=== PATIENT | male | born 1960 | race Caucasian/White ===

== ENCOUNTER 2018-06-25 10:25 | Emergency (ER) | payer MEDICAID ==
[2018-06-25] MEDS ORDERED: Sodium Chloride 0.9% 10 ML Syringe FLUSH PRN (10:32)
--- NOTE | 2018-06-25 10:50 | CR ---
[id number] RAD/RAD Chest PA And Lateral EXAM: FRONTAL AND LATERAL CHEST INDICATION: Chest pain. COMPARISON: November 04, 2014. DISCUSSION: Hyperinflation suggests underlying chronic obstructive pulmonary disease. Bilateral nipple shadows. No acute infiltrates are IMPRESSION: 1. No acute findings. César Mg MD 06/25/18 1049 Thank you for allowing us to participate in the care of your patient.
--- NOTE | 2018-06-25 10:56 | EDM.PDOC ---
ED HPI GENERAL MEDICAL PROBLEM - General Chief Complaint: Chest Pain Stated Complaint: rib pain Time Seen by Provider: 06/25/18 10:50 Source of Information: Reports: Patient History Limitations: Reports: No Limitations - History of Present Illness INITIAL COMMENTS - FREE TEXT/NARRATIVE: Patient's a 58-year-old gentleman who presents to the emergency department this morning with a complaint of left lower rib pain. Patient contacted the [facility], but was told to present to the ER. Patient states that symptoms began about a week ago and have isolated to left lower anterior rib cage. Patient states that he does a repetitive type motion at work that involves using both hands pulling across his body. Patient also states that he had left lower extremity vein stripping March 2018. There is been no issues of edema or pain of extremity since. While trying to obtain IV access and lab work, there was difficulty in obtaining access and patient only allowed nurse one attempt. This attempt was unsuccessful. Patient states that he was previously an IV drug user and refused to have second attempt for lab work. Currently, patient denies fever, chest pain, shortness of breath, abdominal pain, nausea, vomiting , diarrhea, coughing of blood, or specific trauma. Onset: Gradual Duration: Week(s): Location: Reports: Chest Quality: Reports: Ache Severity: Mild Improves with: Reports: None Worsens with: Reports: Movement Context: Reports: Activity (Repetitive type motion at work) Associated Symptoms: Reports: No Other Symptoms left lower rib Pain Score (Numeric/FACES): 2 - Related Data Allergies Allergy/AdvReac Type Severity Reaction Status Date / Time vancomycin Allergy Itching Verified 06/25/18 10:48 Home Meds: Home Meds Buprenorphine [Subutex] 1 mg PO DAILY 10/12/14 [History] Ibuprofen 800 mg PO TID PRN 06/25/18 [History] Tamsulosin HCl 0.4 mg PO DAILY 06/25/18 [History] Past Medical History - Past Health History Medical/Surgical History: Denies Medical/Surgical History Other Psychiatric History: on a pain med program - Past Surgical History Other Musculoskeletal Surgeries/Procedures:: right knee fracture fixation Social & Family History - Living Situation & Occupation Living situation: Reports: with Spouse ED ROS GENERAL - Review of Systems Review Of Systems: ROS reveals no pertinent complaints other than HPI. Constitutional: Reports: No Symptoms HEENT: Reports: No Symptoms Respiratory: Reports: No Symptoms. Denies: Shortness of Breath Cardiovascular: Reports: No Symptoms. Denies: Chest Pain Endocrine: Reports: No Symptoms GI/Abdominal: Reports: No Symptoms : Reports: No Symptoms Musculoskeletal: Reports: Other (Left rib pain) Skin: Reports: No Symptoms Neurological: Reports: No Symptoms Psychiatric: Reports: No Symptoms Hematologic/Lymphatic: Reports: No Symptoms Immunologic: Reports: No Symptoms ED EXAM, GENERAL - Physical Exam Exam: See Below Exam Limited By: No Limitations General Appearance: Alert, WD/WN, No Apparent Distress Throat/Mouth: Normal Inspection, Normal Oropharynx, No Airway Compromise Head: Atraumatic, Normocephalic Neck: Normal Inspection, Supple, Non-Tender Respiratory/Chest: No Respiratory Distress, Lungs Clear, Normal Breath Sounds, No Accessory Muscle Use, Other Cardiovascular: Normal Peripheral Pulses, Regular Rate, Rhythm, No Murmur, No Rub GI/Abdominal: Normal Bowel Sounds, Soft, Non-Tender, No Organomegaly, No Distention, No Abnormal Bruit, No Mass Back Exam: Normal Inspection. No: CVA Tenderness (L), CVA Tenderness (R) Extremities: Normal Inspection, No Pedal Edema, Other (Left lower extremity without any erythema, edema, or calf tenderness on palpation.) Neurological: Alert, Oriented, Normal Cognition Psychiatric: Normal Affect, Normal Mood Skin Exam: Warm, Dry, Intact, Normal Color, No Rash Lymphatic: No Adenopathy EKG INTERPRETATION EKG Date: 06/25/18 Time: 10:40 Rhythm: NSR Rate (Beats/Min): 68 [place]: Normal P-Wave: Present QRS: Normal ST-T: Normal QT: Normal Comparison: No Change Course - Vital Signs Last Recorded V/S: Last Vital Signs Temp 97.2 F 06/25/18 10:35 Pulse 71 06/25/18 10:35 Resp 16 06/25/18 10:35 BP 127/70 06/25/18 10:35 Pulse Ox 98 06/25/18 10:35 - Orders/Labs/Meds Orders: Active Orders 24 hr Category Date Time Status EKG Documentation Completion [RC] ASDIRECTED Care 06/25/18 10:31 Active Peripheral IV Care [RC] . DIRECTED Care 06/25/18 10:32 Active CBC WITH AUTO DIFF [HEME] Stat Lab 06/25/18 10:32 Ordered COMPREHENSIVE METABOLIC PN,CMP [CHEM] Stat Lab 06/25/18 10:32 Ordered D-DIMER QUANTITATIVE [COAG] Stat Lab 06/25/18 10:32 Ordered TROPONIN I [CHEM] Stat Lab 06/25/18 10:32 Ordered Sodium Chloride 0.9% [Saline Flush] Med 06/25/18 10:32 Active 10 ml FLUSH Q8HR PRN Peripheral IV Insertion Adult [OM.PC] Routine Oth 06/25/18 10:32 Ordered EKG 12 Lead [EK] Routine Ther 06/25/18 10:31 Ordered Medication Orders Sodium Chloride (Saline Flush) 10 ml FLUSH Q8HR PRN PRN Reason: keep vein open Meds: Medications Generic Name Dose Route Start Last Admin Trade Name Freq PRN Reason Stop Dose Admin Sodium Chloride 10 ml 06/25/18 10:32 Saline Flush FLUSH Q8HR PRN keep vein open - Radiology Interpretation Free Text/Narrative:: Chest x-ray shows no acute cardiopulmonary process - Re-Assessments/Exams Free Text/Narrative Re-Assessment/Exam: 06/25/18 11:05 Patient afebrile, appears nontoxic, vital signs stable, EKG normal sinus rhythm , chest x-ray shows no acute cardiopulmonary process. Lab work was not performed per patient request. There was isolated specific point tenderness of left lower rib consistent with costochondritis and repetitive type motion. Patient will follow-up at clinic Departure - Departure Time of Disposition: 11:07 Disposition: Home, Self-Care 01 Condition: Good Clinical Impression: Costochondritis - Discharge Information Instructions: Costochondritis, [id number], Chest Wall Pain, [id number] Referrals: Daly Haynes MD [Primary Care Provider] - Additional Instructions: Follow-up with Dr. Douglas in next 2-3 days. Return to emergency department sooner if symptoms continue or worsen. - My Orders Last 24 Hours: My Active Orders 06/25/18 10:31 EKG Documentation Completion [RC] ASDIRECTED EKG 12 Lead [EK] Routine 06/25/18 10:32 Peripheral IV Care [RC] . DIRECTED CBC WITH AUTO DIFF [HEME] Stat COMPREHENSIVE METABOLIC PN,CMP [CHEM] Stat D-DIMER QUANTITATIVE [COAG] Stat TROPONIN I [CHEM] Stat Sodium Chloride 0.9% [Saline Flush] 10 ml FLUSH Q8HR PRN Peripheral IV Insertion Adult [OM.PC] Routine - Assessment/Plan Last 24 Hours: My Active Orders 06/25/18 10:31 EKG Documentation Completion [RC] ASDIRECTED EKG 12 Lead [EK] Routine 06/25/18 10:32 Peripheral IV Care [RC] . DIRECTED CBC WITH AUTO DIFF [HEME] Stat COMPREHENSIVE METABOLIC PN,CMP [CHEM] Stat D-DIMER QUANTITATIVE [COAG] Stat TROPONIN I [CHEM] Stat Sodium Chloride 0.9% [Saline Flush] 10 ml FLUSH Q8HR PRN Peripheral IV Insertion Adult [OM.PC] Routine Assessment:: Costochondritis Plan: Follow-up at clinic
[2018-06-25 10:59] VITALS: BP 117/65
== END 2018-06-25 11:10 | disposition home or self-care (01) ==
LOC: KA.ED 10:25
DX: M94.0 Chondrocostal junction syndrome [Tietze] (principal); Z79.899 Other long term (current) drug therapy; Z88.1 Allergy status to other antibiotic agents
CPT/HCPCS: 71046; 93005; 99283-25

== ENCOUNTER 2018-11-01 13:25 | Emergency (ER) | payer OTHER ==
[2018-11-01 13:36] VITALS: BP 132/81; PULSE 84
--- NOTE | 2018-11-01 14:43 | CR ---
[id number] RAD/RAD Sacrum and Coccyx Exam: RAD Sacrum and Coccyx Clinical Data: BACK PAIN COMPARISON: NO PREVIOUS SIMILAR EXAM IS AVAILABLE FINDINGS: Mild to moderate degenerative changes at multiple levels are seen. There is no fracture or subluxation. Abundant fecal matter is seen in the colon. IMPRESSION: MILD TO MODERATE DEGENERATIVE CHANGES. Torsten Amado MD 11/01/18 [id number] Thank you for allowing us to participate in the care of your patient.
--- NOTE | 2018-11-01 14:44 | CR ---
[id number] RAD/RAD Lumbar Spine 2-3V EXAM: AP AND LATERAL LUMBAR SPINE. INDICATION: Back pain COMPARISON: No previous similar exam is available for comparison. FINDINGS: There are degenerative changes. There is no fracture or subluxation. Consider MRI if needed. IMPRESSION: NO ACUTE PLAIN FILM ABNORMALITY. Torsten Amado MD 11/01/18 1419 Thank you for allowing us to participate in the care of your patient.
[2018-11-01] MEDS ORDERED: Ketorolac 60 MG/2 ML SDV IM ONE (14:46)
--- NOTE | 2018-11-01 15:14 | EDM.PDOC ---
ED HPI GENERAL MEDICAL PROBLEM - General Chief Complaint: Back Pain or Injury Stated Complaint: severe low back pain Time Seen by Provider: 11/01/18 14:00 Source of Information: Reports: Patient History Limitations: Reports: No Limitations - History of Present Illness INITIAL COMMENTS - FREE TEXT/NARRATIVE: 58-year-old male presents emergency room with complaints of severe low back pain. He was seen by Dr. Daly Douglas on October 30 for complaints of low back pain. His onset began on October 23. 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 He notices that if he sits or lies down his back pain is worse. He feels it gets some relief of his discomfort with standing or walking. Bending and twisting is also quite bothersome for him. He denies any bowel or bladder retention or incontinence. He 's been taking 800 mg of ibuprofen up to 4 times a day he was started on Flexeril 10 mg 3 times a day. He was given trigger point injections in his low back. He's had no relief of the pain and symptoms. He denies any history of low back pain in the remote past. 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 He is followed by his psychiatrist Dr. Patino in [place]. He is on bupropion. He denies significant pain radiating her shooting down his legs. Pain tends to be across his belt line. He denies significant constipation in the past and states that he has had a bowel movement daily. 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) Lower Back Pain Score (Numeric/FACES): 8 - Related Data Allergies Allergy/AdvReac Type Severity Reaction Status Date / Time vancomycin Allergy Itching Verified 11/01/18 13:32 Home Meds: Home Meds Ibuprofen 800 mg PO TID PRN 06/25/18 [History] Tamsulosin HCl 0.4 mg PO DAILY 06/25/18 [History] Buprenorphine HCl 2 mg PO BID 11/01/18 [History] Cyclobenzaprine [Flexeril] 10 mg PO TID PRN 11/01/18 [History] LORazepam 0.5 - 1 mg PO BID PRN 11/01/18 [History] Mirtazapine 15 mg PO BEDTIME 11/01/18 [History] Tadalafil [Cialis] 40 - 60 mg PO DAILY PRN 11/01/18 [History] Past Medical History - Past Health History Medical/Surgical History: Denies Medical/Surgical History HEENT History: Reports: Impaired Vision Genitourinary History: Reports: BPH Musculoskeletal History: Reports: Fracture, Other (See Below) Other Musculoskeletal History: Back injury on 10/23/18 Psychiatric History: Reports: Other (See Below) Other Psychiatric History: on a pain med program - Past Surgical History Head Surgeries/Procedures: Reports: None Cardiovascular Surgical History: Reports: Varicose, Other (See Below) Other Cardiovascular Surgeries/Procedures: varicose veins stripped left leg March 2018 Musculoskeletal Surgical History: Reports: Other (See Below) Other Musculoskeletal Surgeries/Procedures:: right knee fracture fixation Social & Family History - Family History Family Medical History: Noncontributory - Caffeine Use Caffeine Use: Reports: Coffee, Soda - Living Situation & Occupation Living situation: Reports: with Spouse ED ROS GENERAL - Review of Systems Review Of Systems: See Below Constitutional: Reports: Weight Loss. Denies: Fever, Chills HEENT: Reports: No Symptoms Respiratory: Reports: No Symptoms Cardiovascular: Reports: No Symptoms Endocrine: Reports: No Symptoms GI/Abdominal: Denies: Abdominal Pain, Constipation, Nausea, Stool Incontinence, Vomiting : Denies: Incontinence, Urinary Retention Musculoskeletal: Reports: Back Pain Skin: Reports: No Symptoms Neurological: Denies: Numbness, Paresthesia, Pre-Existing Deficit, Weakness Psychiatric: Reports: Other (History of narcotic dependence) Hematologic/Lymphatic: Reports: No Symptoms Immunologic: Reports: No Symptoms ED EXAM,LOWER BACK PAIN/INJURY - Physical Exam Exam: See Below Exam Limited By: No Limitations General Appearance: Alert, No Apparent Distress, Thin Ears: Hearing Grossly Normal Nose: Normal Inspection Throat/Mouth: Normal Voice, No Airway Compromise Head: Atraumatic, Normocephalic Neck: Normal Inspection, Supple Respiratory/Chest: No Respiratory Distress GI/Abdominal: Soft, Non-Tender Back Exam: Normal Inspection, Decreased Range of Motion, Paraspinal Tenderness. No: CVA Tenderness (L), CVA Tenderness (R), Vertebral Tenderness Extremities: Normal Inspection, Normal Range of Motion, Non-Tender, No Pedal Edema Neurological: Alert, Normal Dorsiflexion, Normal Plantar Flexion, Normal Reflexes, No Motor/Sensory Deficits, Oriented x 3, Straight Leg Raise (L), Straight Leg Raise (R), Difficulty Walking, Other (Motor strength bilateral lower extremities are 5 out of 5 throughout. Patient has a positive straight leg raise on the left and right which reproduces severe low back pain at the belt line. Deep tendon reflexes are 3+ and symmetric at the knees and ankles she has no pain with gentle hip or knee range of motion he has a well-healed incision of the right knee consistent with prior surgery and per patient's report severe trauma from an open fracture. No swelling about his knees or ankles.). No: Babinski, Saddle Anesthesia DTR - Lower Extremities: 2+: Ankle (R), Ankle (L), 3+: Knee (R), Knee (L) Psychiatric: Depressed Mood Skin Exam: Warm, Dry, Intact, Normal Color, No Rash Lymphatic: No Adenopathy Course - Vital Signs Last Recorded V/S: Last Vital Signs Temp 97.8 F 11/01/18 13:33 Pulse 84 11/01/18 13:33 Resp 16 11/01/18 13:33 BP 132/81 11/01/18 13:33 Pulse Ox 97 11/01/18 13:33 - Orders/Labs/Meds Meds: Medications Discontinued Medications Generic Name Dose Route Start Last Admin Trade Name Freq PRN Reason Stop Dose Admin Ketorolac Tromethamine 60 mg 11/01/18 14:46 11/01/18 14:53 Toradol IM 11/01/18 14:47 60 mg ONETIME ONE Administration Orphenadrine Citrate 60 mg 11/01/18 14:47 11/01/18 14:51 Norflex IM 11/01/18 14:48 60 mg Q12H ONE Administration - Radiology Interpretation Free Text/Narrative:: X-ray lumbar spine including sacrum and coccyx Findings: Mild degenerative changes are seen. No evidence of fracture or subluxation. Patient has a large amount of stool in the colon Impression: Mild to moderate degenerative changes lumbar spine Departure - Departure Time of Disposition: 15:20 Disposition: Home, Self-Care 01 Condition: Good Clinical Impression: Acute low back pain with radicular symptoms, duration less than 6 weeks - Discharge Information Instructions: Acute Back Pain, Adult Referrals: Daly Haynes MD [Primary Care Provider] - 11/04/18 2:00 pm (Dr. Douglas F/U at 2 PM. MRI at [facility] at 10:30.) Forms: ED Department Discharge - Assessment/Plan Assessment:: Acute low back pain with sciatica Plan: 1. You may use ice and or heat to your lower back as needed. 2. Continue with ibuprofen 800 mg 3 times a day with food. 3. Flexeril 10 mg 3 times a day as needed for muscle pain and spasm. 4. Begin MiraLAX twice a day to 3 times a day for constipation. 5. You have an MRI scheduled at [facility] in [facility] on Sunday at 10:30 AM. 6. Follow-up with Dr. Daly Douglas Sunday afternoon to go over results of MRI. 7. If MRI is negative for disc herniation or nerve root compression, would recommend starting physical therapy and/or chiropractic treatments. 8. Avoid activities that aggravate your low back pain. Keep the lifting to 10 pounds or under.
== END 2018-11-01 15:20 | disposition home or self-care (01) ==
LOC: KA.ED 13:25
DX: M54.40 Lumbago with sciatica, unspecified side (principal); Z88.1 Allergy status to other antibiotic agents; Z79.899 Other long term (current) drug therapy
CPT/HCPCS: 72100; 72220; 96372; 99283; J1885; J2360

== ENCOUNTER 2020-01-31 19:07 | Emergency (ER) | payer OTHER, SELFPAY ==
[2020-01-31 19:24] VITALS: BP 152/89; PULSE 84
--- NOTE | 2020-01-31 19:28 | EDM.PDOCBH ---
ED HPI GENERAL MEDICAL PROBLEM - General Chief Complaint: Behavioral/Psych Stated Complaint: SUICIDAL IDEALATION Time Seen by Provider: 01/31/20 19:15 Source of Information: Reports: Patient, Police History Limitations: Reports: No Limitations - History of Present Illness INITIAL COMMENTS - FREE TEXT/NARRATIVE: 59 YO WM PRESENTS TO ER BY LAW ENFORCEMENT SECONDARY TO SUICIDAL IDEALIZATION. PT REPORTS HE AND HIS RECENTLY AND HE HAS BEEN FEELING DEPRESSED FOR SOMETIME. PT REPORTS LAST NIGHT HE WAS THINKING ABOUT DRINKING ANTIFREEZE BUT DECIDED AGAINST IT WHEN HIS CALLED HIM. PT REPORTS HE WOULD LIKE INPATIENT TREATMENT FOR HIS DEPRESSION. PT DENIES AUDITORY OR VISUAL HALLUCINATIONS, PT DENIES HOMICIDAL IDEATION. PT IS ALERT AND ORIENTED X 4. PT REPORTS HE HAS HAD INPATIENT PSYCH TREATMENT IN THE REMOTE PAST. PT DENIES ALCOHOL/DRUGS OR ANY ATTEMPTED INGESTION. Onset: Unknown/Unsure Duration: Chronic Location: Reports: Generalized Improves with: Reports: None Worsens with: Reports: None Associated Symptoms: Reports: No Other Symptoms - Related Data Allergies Allergy/AdvReac Type Severity Reaction Status Date / Time vancomycin Allergy Itching Verified 01/31/20 19:17 Home Meds: Home Meds Ibuprofen 800 mg PO TID PRN 06/25/18 [History] Buprenorphine HCl 1 mg PO QID 11/01/18 [History] LORazepam 0.5 - 1 mg PO BID PRN 11/01/18 [History] Tadalafil [Cialis] 40 - 60 mg PO DAILY PRN 11/01/18 [History] Past Medical History - Past Health History Medical/Surgical History: Denies Medical/Surgical History HEENT History: Reports: Impaired Vision Genitourinary History: Reports: BPH Musculoskeletal History: Reports: Fracture, Other (See Below) Other Musculoskeletal History: Back injury on 10/23/18 Psychiatric History: Reports: Other (See Below) Other Psychiatric History: on a pain med program - Past Surgical History Head Surgeries/Procedures: Reports: None Cardiovascular Surgical History: Reports: Varicose, Other (See Below) Other Cardiovascular Surgeries/Procedures: varicose veins stripped left leg March 2018 Musculoskeletal Surgical History: Reports: Other (See Below) Other Musculoskeletal Surgeries/Procedures:: right knee fracture fixation Social & Family History - Family History Family Medical History: Noncontributory - Caffeine Use Caffeine Use: Reports: Coffee, Soda - Living Situation & Occupation Living situation: Reports: with Spouse ED ROS GENERAL - Review of Systems Review Of Systems: See Below Constitutional: Reports: Weight Loss HEENT: Reports: No Symptoms Respiratory: Reports: No Symptoms Cardiovascular: Reports: No Symptoms Endocrine: Reports: No Symptoms GI/Abdominal: Reports: No Symptoms : Reports: No Symptoms Musculoskeletal: Reports: No Symptoms Skin: Reports: No Symptoms Neurological: Reports: No Symptoms Psychiatric: Reports: Anxiety, Depression, Suicidal Ideation. Denies: Agitation, Confusion, Cravings, Hallucinations, Homicidal Ideation, Mood Lability Hematologic/Lymphatic: Reports: No Symptoms Immunologic: Reports: No Symptoms ED EXAM, BEHAVIORAL HEALTH - Physical Exam Exam: See Below Exam Limited By: No Limitations General Appearance: Alert, WD/WN, No Apparent Distress Eye Exam: Bilateral Eye: EOMI, PERRL Throat/Mouth: Normal Inspection, Normal Lips, Normal Teeth, Normal Gums, Normal Oropharynx, Normal Voice, No Airway Compromise Head: Atraumatic, Normocephalic Neck: Normal Inspection, Supple, Non-Tender, Full Range of Motion Respiratory/Chest: No Respiratory Distress, Lungs Clear, Normal Breath Sounds, No Accessory Muscle Use, Chest Non-Tender Cardiovascular: Normal Peripheral Pulses, Regular Rate, Rhythm, No Edema, No Gallop, No JVD, No Murmur, No Rub GI/Abdominal: Normal Bowel Sounds, Soft, Non-Tender, No Organomegaly, No Distention, No Abnormal Bruit, No Mass Back Exam: Normal Inspection, Full Range of Motion, NT Extremities: Normal Inspection, Normal Range of Motion, Non-Tender, Normal Capillary Refill, No Pedal Edema Neurological: Alert, Normal Mood/Affect, CN II-XII Intact, Normal Cognition, Normal Gait, Normal Reflexes, No Motor/Sensory Deficits, Oriented x 3 Psychiatric: Alert, Normal Cognition, Oriented, Depressed Mood, Flat Affect, Suicidal Plan, Suicidal Thoughts. No: Tearful, Agitated, Disoriented, Uncooperative, Homicidal Thoughts, Phobic, Tangential Thoughts, Auditory Hallucinations, Visual Hallucinations, Grandiose Thoughts, Pressured Speech, Paranoid Thoughts, Threatening Behavior Skin Exam: Warm, Dry, Intact, Normal color, No rash COURSE, BEHAVIORAL HEALTH COMP - Course Vital Signs: Last Vital Signs Temp 35.7 C L 01/31/20 19:22 Pulse 84 01/31/20 19:22 Resp 20 01/31/20 19:22 BP 152/89 H 01/31/20 19:22 Pulse Ox 98 01/31/20 19:22 Orders, Labs, Meds: Laboratory Tests 01/31/20 01/31/20 01/31/20 Range/Units 19:16 19:40 19:40 WBC 9.51 (5.00-10.00) 10^3/uL RBC 4.99 (4.50-6.00) 10^6/uL Hgb 15.8 (13.0-17.0) g/dL Hct 47.5 (40.0-52.0) % MCV 95.2 H (82.0-92.0) fL MCH 31.7 H (27.0-31.0) pg MCHC 33.3 (32.0-36.0) g/dL RDW 12.5 (11.5-14.5) % Plt Count 207 (150-400) 10^3/uL MPV 8.4 (7.4-10.4) fL Immature Gran % (Auto) 0.2 (0.0-5.0) % Neut % (Auto) 70.4 H (50.0-70.0) % Lymph % (Auto) 20.9 (20.0-40.0) % [place] % (Auto) 7.7 (2.0-8.0) % Eos % (Auto) 0.5 L (1.0-3.0) % Baso % (Auto) 0.3 (0.0-1.0) % Neut # (Auto) 6.69 (2.50-7.00) 10^3/uL Lymph # (Auto) 1.99 (1.00-4.00) 10^3/uL [place] # (Auto) 0.73 (0.10-0.80) 10^3/uL Eos # (Auto) 0.05 L (0.10-0.30) 10^3/uL Baso # (Auto) 0.03 (0.00-0.10) 10^3/uL Immature Gran # (Auto) 0.02 (0.00-0.50) 10^3/uL Sodium 140 (136-145) mmol/L Potassium 3.9 (3.3-5.3) mmol/L Chloride 103 (98-115) mmol/L Carbon Dioxide 28.1 (21.0-32.0) mmol/L Anion Gap 12.8 (5-15) mmol/L BUN 12 (6-25) mg/dL Creatinine 0.82 (0.51-1.17) mg/dL Est Cr Clr Drug Dosing 77.17 mL/min Estimated GFR (MDRD) > 60 mL/min Glucose 104 H (75 - 99) mg/dL Calcium 9.1 (8.7-10.3) mg/dL Total Bilirubin 0.8 (0.2-1.0) mg/dL AST 21 (15-37) U/L ALT 33 (12-78) U/L Alkaline Phosphatase 78 (46-116) IU/L Total Protein 7.4 (6.4-8.2) g/dL Albumin 4.32 (3.00-4.80) g/dL Urine Opiates Screen Negative (NEGATIVE) Ur Oxycodone Screen Negative (NEGATIVE) Urine Methadone Screen Negative (NEGATIVE) Ur Propoxyphene Screen Negative (NEGATIVE) Acetaminophen 0.0 L (10.0-30.0) ug/mL Ur Barbiturates Screen Negative (NEGATIVE) Ur Tricyclics Screen Negative (NEGATIVE) Ur Phencyclidine Scrn Negative (NEGATIVE) Ur Amphetamine Screen Negative (NEGATIVE) U Methamphetamines Scrn Negative (NEGATIVE) U Benzodiazepines Scrn Positive H (NEGATIVE) U Cocaine Metab Screen Negative (NEGATIVE) U Marijuana (THC) Screen Negative (NEGATIVE) Ethyl Alcohol 5 H (NONE DETECTED) mg/dL Medical Clearance: 01/31/20 20:42 PT MEDICALLY CLEAR FOR PSYCH EVALUATION. PT ALERT AND ORIENTED X 4; VITAL SIGNS STABLE; NAD Discharge vs Psych Eval/Treatment:: 01/31/20 20:[address] [facility] FOR PLACEMENT- NO PSYCH BEDS AVAILABLE CALLED [facility]- BEDS AVAILABLE-AWAITING PSYCH ACCEPTING Departure - Departure Time of Disposition: 21:41 Disposition: DC/Tfer to Psych Hosp/Unit 65 Clinical Impression: Depressive disorder, Suicidal ideation - Discharge Information Referrals: Daly Haynes MD [Primary Care Provider] - Forms: ED Department Discharge, Interfacility Transfer EMTALA Sepsis Event Note (ED) - Focused Exam Vital Signs: Vital Signs Temp Pulse Resp BP Pulse Ox 01/31/20 19:22 35.7 C L 84 20 152/89 H 98 - Assessment/Plan Assessment:: 1. SUICIDAL IDEATION WITH PLAN Plan: 1. TRANSFER TO [facility] [address]- 2. SUPPORTIVE CARE 3. TRANSFER BY AMBULANCE- PT IS CURRENTLY VOLUNTARY FOR PSYCH TRANSFER
[2020-01-31 20:11] LABS: BARBITURATE SCREEN,URINE NEGATIVE (NEGATIVE); BENZODIAZEPINES SCREEN,URINE POSITIVE (NEGATIVE)
[2020-01-31 20:12] LABS: TCA SCREEN,URINE NEGATIVE (NEGATIVE); THC SCREEN,URINE 50 NG/ML NEGATIVE (NEGATIVE)
[2020-01-31 20:21] LABS: ANION GAP 12.8 mmol/L (5-15); CHLORIDE,CL 103 mmol/L (98-115); SODIUM,NA 140 mmol/L (136-145)
== END 2020-01-31 22:20 ==
LOC: KA.ED 19:07
DX: F32.9 Major depressive disorder, single episode, unspecified (principal); Z88.1 Allergy status to other antibiotic agents
CPT/HCPCS: 36415; 80053; 80305-QW; 80307; 85025; 99284; 99285

== ENCOUNTER 2020-02-26 14:13 | Emergency (ER) | payer OTHER ==
--- NOTE | 2020-02-26 15:08 | EDM.PDOC ---
ED HPI GENERAL MEDICAL PROBLEM - General Chief Complaint: Abdominal Pain Stated Complaint: RIGHT SIDE PX-APPENDICITIS? Time Seen by Provider: 02/26/20 15:08 Source of Information: Reports: Patient History Limitations: Reports: No Limitations - History of Present Illness INITIAL COMMENTS - FREE TEXT/NARRATIVE: Worsening abdominal discomfort, now to his right mid/right lower quadrant of the abdomen. Denies any fever chills, states bowel movements have been regular. Has had no recent bladder issues stating he had a previous kidney stone that was worked up with CT. States that something must be wrong for the type of pain I am having. Onset: Gradual Duration: Getting Worse Location: Reports: Abdomen Quality: Reports: Burning, Pressure Severity: Moderate Improves with: Reports: None Worsens with: Reports: Movement Right Lower Abdominal Pain Score (Numeric/FACES): 8 - Related Data Allergies Allergy/AdvReac Type Severity Reaction Status Date / Time vancomycin Allergy Itching Verified 02/26/20 14:29 Home Meds: Home Meds Ibuprofen 800 mg PO TID PRN 06/25/18 [History] Buprenorphine HCl 1 mg PO QID 11/01/18 [History] LORazepam 0.5 mg PO BEDTIME PRN 11/01/18 [History] Tadalafil [Cialis] 40 - 60 mg PO DAILY PRN 11/01/18 [History] Dutasteride 0.5 mg PO DAILY 02/26/20 [History] Tamsulosin HCl 0.4 mg PO DAILY 02/26/20 [History] Past Medical History - Past Health History Medical/Surgical History: Denies Medical/Surgical History HEENT History: Reports: Impaired Vision Genitourinary History: Reports: BPH, Renal Calculus Musculoskeletal History: Reports: Fracture, Other (See Below) Other Musculoskeletal History: Back injury on 10/23/18 Psychiatric History: Reports: Anxiety, Depression, Other (See Below) Other Psychiatric History: on a pain med program - Infectious Disease History Infectious Disease History: Reports: Hepatitis C - Past Surgical History Head Surgeries/Procedures: Reports: None Cardiovascular Surgical History: Reports: Varicose, Other (See Below) Other Cardiovascular Surgeries/Procedures: varicose veins stripped left leg March 2018 Musculoskeletal Surgical History: Reports: Other (See Below) Other Musculoskeletal Surgeries/Procedures:: right knee fracture fixation - Past Imaging History Past Imaging History: Reports: CAT Scan, Xray Social & Family History - Family History Family Medical History: Noncontributory - Tobacco Use Tobacco Use Status *Q: Current Every Day Tobacco User Years of Tobacco use: 20 Packs/Tins Daily: 1 - Caffeine Use Caffeine Use: Reports: Coffee Other Caffeine Use: 3-4 cups/ day - Recreational Drug Use Recreational Drug Use: No - Living Situation & Occupation Living situation: Reports: with Spouse ED ROS GENERAL - Review of Systems Review Of Systems: Comprehensive ROS is negative, except as noted in HPI. ED EXAM, GENERAL - Physical Exam Exam: See Below Free Text/Narrative:: Yazan, is alert, oriented in mild distress. He points to the right lower quadrant as I listen to his history of this development. HEENT is negative discharge or deformity, there is odor of smoking product with pink moist mucous membranes orally. Neck is soft supple no lymphadenopathy. Thorax is raspy, I attribute to smoking with no wheezes nor crackles. Cardiac is S1 is 2 I do not appreciate any murmur. Abdomen has hyperactive bowel sounds with mild tenderness in the right lower quadrant, no rebound tenderness. His pain does not seem to radiate when I c ompress. After the examination, he moves and said "There it is," pointing to the abdominal wall 4 cm medial of the iliac crest. Tenderness is noted when I palpate. The pain does not seemingly correlate with his point tenderness on self-exam to my examination. Remainder of abdomen is soft and non-guarding nontender. He has no psoas sign, no motion induced pain from lower extremity or raising to a seated position from supine. I do discuss with him the process evaluation laboratory analysis, urinalysis if he is able to provide, and a CAT scan with contrast to which he agrees. Course - Vital Signs Last Recorded V/S: Last Vital Signs Temp 37.1 C 02/26/20 14:30 Pulse 65 02/26/20 14:30 Resp 16 02/26/20 14:30 BP 122/84 02/26/20 14:30 Pulse Ox 97 02/26/20 14:30 - Orders/Labs/Meds Orders: Active Orders 24 hr Category Date Time Status Sodium Chloride 0.9% [Normal Saline] 50 ml Med 02/26/20 16:15 Active IV ASDIRECTED Medication Orders Sodium Chloride (Normal Saline) 50 mls @ 200 mls/hr IV ASDIRECTED JP Last Admin: 02/26/20 16:00 Dose: 200 mls/hr Documented by: [id number] Labs: Laboratory Tests 02/26/20 02/26/20 02/26/20 Range/Units 15:30 15:30 15:30 WBC 6.66 (5.00-10.00) 10^3/uL RBC 4.39 L (4.50-6.00) 10^6/uL Hgb 14.0 D (13.0-17.0) g/dL Hct 43.2 (40.0-52.0) % MCV 98.4 H D (82.0-92.0) fL MCH 31.9 H (27.0-31.0) pg MCHC 32.4 (32.0-36.0) g/dL RDW 13.0 (11.5-14.5) % Plt Count 152 (150-400) 10^3/uL MPV 8.2 (7.4-10.4) fL Immature Gran % (Auto) 0.2 (0.0-5.0) % Neut % (Auto) 58.5 (50.0-70.0) % Lymph % (Auto) 29.4 (20.0-40.0) % [place] % (Auto) 10.1 H (2.0-8.0) % Eos % (Auto) 1.5 (1.0-3.0) % Baso % (Auto) 0.3 (0.0-1.0) % Neut # (Auto) 3.90 (2.50-7.00) 10^3/uL Lymph # (Auto) 1.96 (1.00-4.00) 10^3/uL [place] # (Auto) 0.67 (0.10-0.80) 10^3/uL Eos # (Auto) 0.10 (0.10-0.30) 10^3/uL Baso # (Auto) 0.02 (0.00-0.10) 10^3/uL Immature Gran # (Auto) 0.01 (0.00-0.50) 10^3/uL Sodium 137 (136-145) mmol/L Potassium 4.1 (3.3-5.3) mmol/L Chloride 105 (98-115) mmol/L Carbon Dioxide 27.7 (21.0-32.0) mmol/L Anion Gap 8.4 (5-15) mmol/L BUN 18 (6-25) mg/dL Creatinine 0.86 (0.51-1.17) mg/dL Est Cr Clr Drug Dosing 75.60 mL/min Estimated GFR (MDRD) > 60 mL/min Glucose 93 (75 - 99) mg/dL Lactic Acid 0.7 (0.4-2.0) mmol/L Calcium 8.5 L (8.7-10.3) mg/dL Total Bilirubin 0.4 (0.2-1.0) mg/dL AST 23 (15-37) U/L ALT 31 (12-78) U/L Alkaline Phosphatase 55 (46-116) IU/L Total Protein 6.2 L (6.4-8.2) g/dL Albumin 3.52 (3.00-4.80) g/dL Amylase 34 (25-125) U/L Lipase 92 (73-393) U/L Meds: Medications Generic Name Dose Route Start Last Admin Trade Name Freq PRN Reason Stop Dose Admin Sodium Chloride 50 mls @ 200 mls/hr 02/26/20 16:15 02/26/20 16:00 Normal Saline IV 200 mls/hr ASDIRECTED JP Administration Discontinued Medications Generic Name Dose Route Start Last Admin Trade Name Freq PRN Reason Stop Dose Admin Iopamidol 100 ml 02/26/20 16:13 02/26/20 16:00 Isovue-370 (76%) IV 02/26/20 16:14 75 ml ONETIME ONE Administration - Re-Assessments/Exams Free Text/Narrative Re-Assessment/Exam: 02/26/20 17:34 AMA at 1613. Called at home, to provide results of lab and CT. asked if prior liver issues other than gall bladder removed. He states 6 weeks of serious hepatitis C when he was in "his 20s." Departure - Departure Time of Disposition: 16:15 Disposition: Against Medical Advice 07 Condition: Good Clinical Impression: Abdominal pain, Disorder of portal venous system - Discharge Information *PRESCRIPTION DRUG MONITORING PROGRAM REVIEWED*: Not Applicable *COPY OF PRESCRIPTION DRUG MONITORING REPORT IN PATIENT LESLIE: Not Applicable Referrals: Daly Haynes MD [Primary Care Provider] - Forms: ED Department Discharge, Refusal of Care AMA Additional Instructions: Secondary of anxiety and irritation to the right forearm from his contrast he states he is leaving. I advised him to wait a few minutes and we would have reports back as I have seen no difficulty encountered on laboratory analysis at this time. He declines stating "my anxiety is getting to me I am leaving you can call me at home. Report is called and he will follow up with Dr. Douglas on Sunday, appointment had been previously scheduled. Sepsis Event Note (ED) - Focused Exam Vital Signs: Vital Signs Temp Pulse Resp BP Pulse Ox 02/26/20 14:30 37.1 C 65 16 122/84 97 - Problem List & Annotations (1) Abdominal pain SNOMED Code(s): 10416162 Code(s): R10.9 - UNSPECIFIED ABDOMINAL PAIN Status: Acute Current Visit: Yes (2) Disorder of portal venous system SNOMED Code(s): 780809335 Code(s): I87.9 - DISORDER OF VEIN, UNSPECIFIED Status: Acute Priority: High Current Visit: Yes (3) Left against medical advice SNOMED Code(s): 941065658 Code(s): Z53.29 - PROC/TRTMT NOT CRD OUT BEC PT DECISION FOR OTH REASONS Status: Acute Priority: High Current Visit: Yes (4) History of hepatitis C SNOMED Code(s): 32471322300760, 41297424619788 Code(s): Z86.19 - PERSONAL HISTORY OF OTHER INFECTIOUS AND PARASITIC DISEASES Status: Chronic Priority: Medium Current Visit: Yes - Problem List Review Problem List Initiated/Reviewed/Updated: Yes - My Orders Last 24 Hours: My Active Orders 02/26/20 16:15 Sodium Chloride 0.9% [Normal Saline] 50 ml IV ASDIRECTED - Assessment/Plan Last 24 Hours: My Active Orders 02/26/20 16:15 Sodium Chloride 0.9% [Normal Saline] 50 ml IV ASDIRECTED Plan: Secondary of anxiety and irritation to the right forearm from his contrast he states he is leaving. I advised him to wait a few minutes and we would have reports back as I have seen no difficulty encountered on laboratory analysis at this time. He declines stating "my anxiety is getting to me I am leaving you can call me at home. Report is called and he will follow up with Dr. Douglas on Sunday, appointment had been previously scheduled.
[2020-02-26 15:53] VITALS: BP 122/84; PULSE 65
[2020-02-26 15:59] LABS: ANION GAP 8.4 mmol/L (5-15); CHLORIDE,CL 105 mmol/L (98-115); SODIUM,NA 137 mmol/L (136-145)
[2020-02-26] MEDS ORDERED: Iopamidol 755 Mg/ML 100 ML Bottle IV ONE (16:13)
[2020-02-26] MEDS ORDERED: Sodium Chloride 0.9% 50 ML IV SCH (16:15)
--- NOTE | 2020-02-26 16:56 | CT ---
[id number] CT/CT Abdomen Pelvis W IV EXAM: CT Abdomen Pelvis W IV CLINICAL DATA: Right lower quadrant abdominal pain x1 month. COMPARISON STUDY: February 17, 2020. FINDINGS: Cholecystectomy clips in the right upper quadrant. Liver demonstrates a slightly nodular contour, most evident along the deep surface of the left hepatic lobe. No focal lesion or biliary ductal dilation. However, portal venous system is dilated. Main portal vein measures up to 17 mm at its origin. Additionally, there are varices in the upper abdomen. Spleen is normal in size. No bowel obstruction or inflammation. Appendix is normal. Moderate colonic stool burden. No evidence of urinary tract obstruction. Simple cortical cysts in the right kidney. No solid or suspicious renal lesions. Spondylosis. IMPRESSION: Negative for appendicitis or other acute findings in the abdomen or pelvis. Nodular hepatic contour with portal venous dilation and varices in the upper abdomen. Findings are somewhat nonspecific but can be seen with hepatocellular disease and early changes of portal hypertension. Correlate with LFTs. Trace Lewis MD 02/26/20 0580 Thank you for allowing us to participate in the care of your patient.
== END 2020-02-26 16:13 | disposition left against medical advice (07) ==
LOC: KA.ED 14:13
DX: R10.31 Right lower quadrant pain (principal); I87.9 Disorder of vein, unspecified; N40.0 Benign prostatic hyperplasia without lower urinary tract symptoms; F17.210 Nicotine dependence, cigarettes, uncomplicated; Z79.899 Other long term (current) drug therapy; Z88.1 Allergy status to other antibiotic agents
CPT/HCPCS: 36415; 74177; 80053; 82150; 83605; 83690; 85025; 99284; 99284-25; Q9967

== ENCOUNTER 2020-11-08 10:53 | Emergency (ER) | payer OTHER ==
--- NOTE | 2020-11-08 10:59 | EDM.PDOC ---
ED HPI GENERAL MEDICAL PROBLEM - General Chief Complaint: Back Pain or Injury Stated Complaint: LOWER RT BACK PAIN Time Seen by Provider: 11/08/20 10:59 Source of Information: Reports: Patient History Limitations: Reports: No Limitations - History of Present Illness INITIAL COMMENTS - FREE TEXT/NARRATIVE: Yazan, 60-year-old male, presents with gradual increase in a chronic right lower back upper SI discomfort. States this started over a month ago and is gradually been worsening. He states he has an appointment for the with Dr. Kauffman to discuss options. He states there is been issues with his insurance company thus the delay in his evaluation and treatment process. Review of old records shows Akil has done injections in the lumbar sacral with what appears to be adequate improvement. He may be a candidate for review and insurance approval process. Onset: Unknown/Unsure Duration: Week(s):, Chronic Location: Reports: Back Lower Back Pain Score (Numeric/FACES): 8 - Related Data Allergies Allergy/AdvReac Type Severity Reaction Status Date / Time vancomycin Allergy Itching Verified 11/08/20 11:04 Home Meds: Home Meds Ibuprofen 800 mg PO TID PRN 06/25/18 [History] Buprenorphine HCl 1 mg PO TID 11/01/18 [History] LORazepam 0.5 mg PO BEDTIME PRN 11/01/18 [History] Tadalafil [Cialis] 40 - 60 mg PO DAILY PRN 11/01/18 [History] Dutasteride 0.5 mg PO DAILY 02/26/20 [History] Tamsulosin HCl 0.4 mg PO DAILY 02/26/20 [History] Cyclobenzaprine HCl 10 mg PO BID 8 Days #15 tablet 11/08/20 [Rx] Ketorolac [Toradol] 10 mg PO TID PRN 5 Days #15 tab 11/08/20 [Rx] Past Medical History - Past Health History Medical/Surgical History: Denies Medical/Surgical History HEENT History: Reports: Impaired Vision Gastrointestinal History: Reports: Hepatitis Genitourinary History: Reports: BPH, Renal Calculus Musculoskeletal History: Reports: Back Pain, Chronic, Fracture, Other (See Below) Other Musculoskeletal History: Back injury on 10/23/18 Psychiatric History: Reports: Addiction, Anxiety, Depression, Other (See Below) Other Psychiatric History: on a pain med program - Infectious Disease History Infectious Disease History: Reports: Hepatitis C - Past Surgical History Head Surgeries/Procedures: Reports: None Cardiovascular Surgical History: Reports: Varicose, Other (See Below) Other Cardiovascular Surgeries/Procedures: varicose veins stripped left leg March 2018 Musculoskeletal Surgical History: Reports: Other (See Below) Other Musculoskeletal Surgeries/Procedures:: right knee fracture fixation - Past Imaging History Past Imaging History: Reports: CAT Scan, Xray Social & Family History - Family History Family Medical History: No Pertinent Family History - Caffeine Use Caffeine Use: Reports: Coffee Other Caffeine Use: 3-4 cups/ day - Living Situation & Occupation Living situation: Reports: with Spouse ED ROS GENERAL - Review of Systems Review Of Systems: Comprehensive ROS is negative, except as noted in HPI. ED EXAM,LOWER BACK PAIN/INJURY - Physical Exam Exam: See Below Text/Narrative:: Alert, oriented in mild pain distress. He complains predominantly of the right SI and upper SI region of the low back. HEENT is negative discharge or deformity. He demonstrates no respiratory distress is able to converse freely and has no audible wheezes no crackles. He is hesitant in standing up as it induces discomfort over the right SI. Palpation of the right SI joint and superior of it induces discomfort which worsens with his motion and positioning of the legs. Mild radiculopathy complaints. States this is the area that has been chronic in nature for his discomfort, worsening in the past weeks significantly, specifically the last week itself. Course - Orders/Labs/Meds Meds: Medications Discontinued Medications Generic Name Dose Route Start Last Admin Trade Name Freq PRN Reason Stop Dose Admin Ketorolac Tromethamine 60 mg 11/08/20 11:04 11/08/20 11:12 Ketorolac 60 Mg/2 Ml Sdv IM 11/08/20 11:05 60 mg ONETIME ONE Administration Departure - Departure Time of Disposition: 11:14 Disposition: Home, Self-Care 01 Condition: Fair Clinical Impression: Chronic low back pain with right-sided sciatica - Discharge Information *PRESCRIPTION DRUG MONITORING PROGRAM REVIEWED*: Not Applicable *COPY OF PRESCRIPTION DRUG MONITORING REPORT IN PATIENT LESLIE: Not Applicable Prescriptions: Cyclobenzaprine HCl 10 mg PO BID 8 Days #15 tablet Ketorolac [Toradol] 10 mg PO TID PRN 5 Days #15 tab PRN Reason: Pain (Moderate 4-6) Instructions: Muscle Strain, [id number], Chronic Back Pain, [id number] Referrals: Daly Haynes MD [Primary Care Provider] - Forms: ED Department Discharge, ED Return to Work/School Form Additional Instructions: We have given you an injection of anti-inflammatory here today. Do not take any ibuprofen or other nonsteroidal treatments today. You may use Tylenol in conjunction with the muscle relaxers that have been prescribed. Continue all of your home medications as directed. You may take the prescribed medication ketorolac starting tomorrow 3 times a day as well as the muscle relaxer starting today at 3 times a day. It is important to remember that while taking these prescription medications to limit other anti-inflammatory such as Aleve or ibuprofen. Make sure you attend your appointment coming up on Sunday as the potential for injection of the area via pain services is possible, as it was beneficial to you in the past. You will need to undergo further evaluation for the determination which may include authorization for other modalities. - Problem List & Annotations (1) Sacroiliac joint dysfunction of right side SNOMED Code(s): 731105515 Code(s): M53.3 - SACROCOCCYGEAL DISORDERS, NOT ELSEWHERE CLASSIFIED Status: Acute Current Visit: Yes (2) Chronic low back pain with right-sided sciatica SNOMED Code(s): 303855792 Code(s): M54.41 - LUMBAGO WITH SCIATICA, RIGHT SIDE; G89.29 - OTHER CHRONIC PAIN Status: Acute Current Visit: Yes Qualifiers: Back pain laterality: right Qualified Code(s): M54.41 - Lumbago with sciatica, right side; G89.29 - Other chronic pain - Problem List Review Problem List Initiated/Reviewed/Updated: Yes - Assessment/Plan Plan: We have given you an injection of anti-inflammatory here today. Do not take any ibuprofen or other nonsteroidal treatments today. You may use Tylenol in conjunction with the muscle relaxers that have been prescribed. Continue all of your home medications as directed. You may take the prescribed medication ketorolac starting tomorrow 3 times a day as well as the muscle relaxer starting today at 3 times a day. It is important to remember that while taking these prescription medications to limit other anti-inflammatory such as Aleve or ibuprofen. Make sure you attend your appointment coming up on Sunday as the potential for injection of the area via pain services is possible, as it was beneficial to you in the past. You will need to undergo further evaluation for the determination which may include authorization for other modalities.
[2020-11-08] MEDS: Ketorolac 60 MG/2 ML SDV IM ONE (11:12)
[2020-11-08 14:04] VITALS: BP 121/70; PULSE 86
== END 2020-11-08 11:45 | disposition home or self-care (01) ==
LOC: KA.ED 10:53
DX: M54.41 Lumbago with sciatica, right side (principal); Z88.1 Allergy status to other antibiotic agents
CPT/HCPCS: 96372; 99283; 99284; J1885

== ENCOUNTER 2021-03-14 19:02 | Emergency (ER) | payer OTHER ==
[2021-03-14] MEDS ORDERED: Ketorolac 30 MG/ML SDV IVPUSH ONE (19:26)
[2021-03-14] MEDS ORDERED: HYDROmorphone 1 MG/ML Syringe IVPUSH ONE (19:26)
[2021-03-14 19:57] LABS: ANION GAP 15.1 mmol/L (5-15); CHLORIDE,CL 104 mmol/L (98-107); SODIUM,NA 143 mmol/L (136-145)
--- NOTE | 2021-03-14 20:16 | EDM.PDOC ---
ED HPI GENERAL MEDICAL PROBLEM - General Chief Complaint: Genitourinary Problem Stated Complaint: KIDNEY STONE Time Seen by Provider: 03/14/21 19:48 Source of Information: Reports: Patient, Significant Other History Limitations: Reports: No Limitations - History of Present Illness INITIAL COMMENTS - FREE TEXT/NARRATIVE: Patient presents with LUQ pain that started 1.5 hours ago (183) along with gross hematuria. Pain is 10/10 and feels like a kidney stone he had 20 years ago. He just saw a urologist earlier today for hematuria that he has had intermittently the past 3 weeks and is scheduled for a cystoscopy in a week. He also had a CT abd/pelvis 3 days ago that reportedly showed stones in his kidney (we can't check it for details because it hasn't officially been "read" by radiology yet, per our radiology orderly). The recent episodes of gross hematuria seemed to coincide with heavy lifting per patient. After the first one he took antibiotics for a few days and it cleared up. He has had visible blood in his urine a couple times since that spontaneously clears up. Until today he never had any pain with it. Earlier today at the urologist's office his urine was clear but now tonight with the onset of this pain, he again sees gross hematuria. He takes two BPH meds: tamsulosin and dutasteride. Right Upper Abdominal Pain Score (Numeric/FACES): 10 - Related Data Allergies Allergy/AdvReac Type Severity Reaction Status Date / Time vancomycin Allergy Itching Verified 11/10/20 15:17 Home Meds: Home Meds Ibuprofen 800 mg PO TID PRN 06/25/18 [History] Buprenorphine HCl 1 mg PO TID 11/01/18 [History] LORazepam 0.5 mg PO BEDTIME PRN 11/01/18 [History] Tadalafil [Cialis] 40 - 60 mg PO DAILY PRN 11/01/18 [History] Dutasteride 0.5 mg PO DAILY 02/26/20 [History] Tamsulosin HCl 0.4 mg PO DAILY 02/26/20 [History] Past Medical History - Past Health History Medical/Surgical History: Denies Medical/Surgical History HEENT History: Reports: Impaired Vision Gastrointestinal History: Reports: Hepatitis Genitourinary History: Reports: BPH, Renal Calculus Musculoskeletal History: Reports: Back Pain, Chronic, Fracture, Other (See Below) Other Musculoskeletal History: Back injury on 10/23/18 Psychiatric History: Reports: Addiction, Anxiety, Depression, Other (See Below) Other Psychiatric History: on a pain med program - Infectious Disease History Infectious Disease History: Reports: Hepatitis C - Past Surgical History Head Surgeries/Procedures: Reports: None Cardiovascular Surgical History: Reports: Varicose, Other (See Below) Other Cardiovascular Surgeries/Procedures: varicose veins stripped left leg March 2018 Musculoskeletal Surgical History: Reports: Other (See Below) Other Musculoskeletal Surgeries/Procedures:: right knee fracture fixation - Past Imaging History Past Imaging History: Reports: CAT Scan, Xray Social & Family History - Family History Family Medical History: No Pertinent Family History - Tobacco Use Tobacco Use Status *Q: Current Every Day Tobacco User Years of Tobacco use: 30 Packs/Tins Daily: 1 - Caffeine Use Caffeine Use: Reports: Coffee, Soda, Tea Other Caffeine Use: 3-4 cups/ day - Recreational Drug Use Recreational Drug Use: No - Living Situation & Occupation Living situation: Reports: with Spouse ED ROS GENERAL - Review of Systems Review Of Systems: See Below Constitutional: Denies: Fever, Chills, Malaise, Weakness HEENT: Denies: Ear Pain, Throat Pain, Vision Change Respiratory: Denies: Shortness of Breath, Cough Cardiovascular: Denies: Chest Pain, Lightheadedness, Syncope GI/Abdominal: Reports: Abdominal Pain. Denies: Diarrhea, Vomiting : Reports: Flank Pain. Denies: Dysuria Musculoskeletal: Denies: Neck Pain, Shoulder Pain, Arm Pain, Back Pain, Hand Pain Skin: Denies: Cyanosis, Jaundice, Mottled, Pallor, Diaphoresis Neurological: Denies: Confusion, Dizziness, Headache, Seizure, Syncope, Trouble Speaking, Difficulty Walking Psychiatric: Denies: Agitation, Anxiety, Confusion Hematologic/Lymphatic: Denies: Easy Bleeding ED EXAM, RENAL/ - Physical Exam Exam: See Below Exam Limited By: No Limitations General Appearance: Alert, WD/WN, No Apparent Distress Eye Exam: Bilateral Eye: EOMI, Normal Inspection, PERRL Ears: Normal External Exam, Hearing Grossly Normal Nose: Normal Inspection, No Blood Throat/Mouth: Normal Inspection, Normal Lips, Normal Voice, No Airway Compromise Head: Atraumatic, Normocephalic Neck: Normal Inspection, Full Range of Motion Respiratory/Chest: No Respiratory Distress, Lungs Clear, Normal Breath Sounds Cardiovascular: Regular Rate, Rhythm, No Murmur GI/Abdominal: Normal Bowel Sounds, Soft, No Organomegaly, No Distention, Tender (mildly reproducible pain in LUQ) Back Exam: Normal Inspection, Full Range of Motion, CVA Tenderness (L). No: CVA Tenderness (R) Extremities: Normal Inspection, Normal Range of Motion Neurological: Alert, Oriented, Normal Cognition, No Motor/Sensory Deficits Psychiatric: Normal Affect, Normal Mood Skin Exam: Warm, Dry, Intact, Normal Color, No Rash Course - Vital Signs Last Recorded V/S: Last Vital Signs Temp 98.1 F 03/14/21 19:14 Pulse 74 03/14/21 19:14 Resp 16 03/14/21 19:14 BP 129/70 03/14/21 19:14 Pulse Ox 97 03/14/21 19:14 - Orders/Labs/Meds Orders: Active Orders 24 hr Category Date Time Status UA W/MICROSCOPIC [URIN] Stat Lab 03/14/21 20:06 Ordered Labs: Laboratory Tests 03/14/21 03/14/21 03/14/21 Range/Units 19:32 19:32 20:05 WBC 6.48 (5.00-10.00) 10^3/uL RBC 4.83 (4.50-6.00) 10^6/uL Hgb 15.2 (13.0-17.0) g/dL Hct 46.4 (40.0-52.0) % MCV 96.1 H (82.0-92.0) fL MCH 31.5 H (27.0-31.0) pg MCHC 32.8 (32.0-36.0) g/dL RDW 12.4 (11.5-14.5) % Plt Count 149 L (150-400) 10^3/uL MPV 8.4 (7.4-10.4) fL Immature Gran % (Auto) 0.2 (0.0-5.0) % Neut % (Auto) 52.3 (50.0-70.0) % Lymph % (Auto) 37.8 (20.0-40.0) % [place] % (Auto) 7.3 (2.0-8.0) % Eos % (Auto) 1.9 (1.0-3.0) % Baso % (Auto) 0.5 (0.0-1.0) % Neut # (Auto) 3.40 (2.50-7.00) 10^3/uL Lymph # (Auto) 2.45 (1.00-4.00) 10^3/uL [place] # (Auto) 0.47 (0.10-0.80) 10^3/uL Eos # (Auto) 0.12 (0.10-0.30) 10^3/uL Baso # (Auto) 0.03 (0.00-0.10) 10^3/uL Immature Gran # (Auto) 0.01 (0.00-0.50) 10^3/uL Sodium 143 (136-145) mmol/L Potassium 4.3 (3.5-5.1) mmol/L Chloride 104 (98-107) mmol/L Carbon Dioxide 28.2 (21.0-32.0) mmol/L Anion Gap 15.1 H (5-15) mmol/L BUN 16 (7-18) mg/dL Creatinine 0.98 (0.51-1.17) mg/dL Est Cr Clr Drug Dosing 66.53 mL/min Estimated GFR (MDRD) > 60 mL/min Glucose 109 (70-140) mg/dL Calcium 8.7 (8.7-10.3) mg/dL Total Bilirubin 0.4 (0.2-1.0) mg/dL AST 33 (15-37) U/L ALT 40 (14-63) U/L Alkaline Phosphatase 72 (46-116) U/L Total Protein 6.9 (6.4-8.2) g/dL Albumin 3.79 (3.40-5.00) g/dL Lipase 108 (73-393) U/L Specimen Type Urinvoid Urine Color Yellow (YELLOW) Urine Appearance Slightly cloudy H (CLEAR) Urine pH 5.5 (5.0-9.0) Ur Specific [place] >= 1.030 (1.005-1.030) Urine Protein 30 H (NEGATIVE) mg/dL Urine Glucose (UA) Negative (NEGATIVE) mg/dL Urine Ketones Trace H (NEGATIVE) mg/dL Urine Occult Blood Large H (NEGATIVE) Urine Nitrite Negative (NEGATIVE) Urine Bilirubin Negative (NEGATIVE) Urine Urobilinogen 0.2 (0.2-1.0) E.U./dL Ur Leukocyte Esterase Negative (NEGATIVE) Urine RBC >100 H (0-5) /HPF Urine WBC Not seen (0-5) /HPF Ur Epithelial Cells Occasional /LPF Urine Bacteria Rare (NONE TO FEW) /HPF Urine Other Meds: Medications Discontinued Medications Generic Name Dose Route Start Last Admin Trade Name Callie PRN Reason Stop Dose Admin Hydrocodone Bitart/Acetaminophen 2 tab 03/14/21 21:02 Acetaminophen/Hydrocodone 325-10 Mg Tab PO 03/14/21 21:03 ONETIME ONE Hydromorphone HCl 1 mg 03/14/21 19:26 03/14/21 19:38 Hydromorphone 1 Mg/Ml Syringe IVPUSH 03/14/21 19:27 1 mg ONETIME ONE Administration Ketorolac Tromethamine 30 mg 03/14/21 19:26 03/14/21 19:36 Ketorolac 30 Mg/Ml Sdv IVPUSH 03/14/21 19:27 30 mg ONETIME ONE Administration - Re-Assessments/Exams Free Text/Narrative Re-Assessment/Exam: 03/14/21 21:08 CT shows 3 mm left ureter calculus with mild left hydronephrosis. UA shows large hematuria and RBCs. Other labs okay. Pain is down and patient says he feels quite comfortable now. We discussed findings and recommendations/treatment plan. Pt is discharged to home in stable condition. Departure - Departure Time of Disposition: 21:05 Disposition: Home, Self-Care 01 Condition: Good Clinical Impression: Left ureteral stone, Gross hematuria - Discharge Information Instructions: Kidney Stones, [id number] Referrals: Daly Haynes MD [Primary Care Provider] - Forms: ED Department Discharge Additional Instructions: Drink 8 cups of water daily. Strain your urine and try to collect the stone for analysis by the urologist. Take the hydrocodone as directed when needed. Continue your Flomax and other medications as directed. See the urologist next Sunday as scheduled. If worsening, recheck in clinic or ER as needed. Sepsis Event Note (ED) - Evaluation Sepsis Screening Result: No Definite Risk - Focused Exam Vital Signs: Vital Signs Temp Pulse Resp BP Pulse Ox 03/14/21 19:14 98.1 F 74 16 129/70 97 - My Orders Last 24 Hours: My Active Orders 03/14/21 20:06 UA W/MICROSCOPIC [URIN] Stat - Assessment/Plan Last 24 Hours: My Active Orders 03/14/21 20:06 UA W/MICROSCOPIC [URIN] Stat
--- NOTE | 2021-03-14 20:43 | CT ---
[id number] CT/CT Abdomen Pelvis WO IV EXAM: CT Abdomen Pelvis WO IV INDICATION: LUQ ABD PAIN WITH KNOWN KIDNEY STONE COMPARISON: March 10, 2021. DISCUSSION: Cholecystectomy. A 3 mm calculus has progressed from the right renal pelvis to the proximal ureter results in mild left hydronephrosis. There is a tiny nonobstructing calculus in the lower pole of the left kidney. No right-sided calculus or hydronephrosis. 17 mm cyst lower pole right kidney and 12 mm cyst upper pole right kidney. Unenhanced images of the liver, spleen, pancreas, adrenal glands, small bowel, large bowel, and the pancreas are unremarkable. No adenopathy, free air free fluid. Mild convex left curvature centered in the upper lumbar spine. Degenerative changes scattered throughout the spine. IMPRESSION: 1. A 3 mm calculus is new from the left renal pelvis is approximately left ureter contributes to mild left hydronephrosis. César Mg MD 03/14/212041 Thank you for allowing us to participate in the care of your patient.
[2021-03-14] MEDS ORDERED: Acetaminophen/HYDROcodone 325-10 MG Tab PO ONE (21:02)
[2021-03-14 21:23] VITALS: BP 107/78; PULSE 77
== END 2021-03-14 21:15 | disposition home or self-care (01) ==
LOC: KA.ED 19:02
DX: N13.2 Hydronephrosis with renal and ureteral calculous obstruction (principal); R31.0 Gross hematuria; N40.0 Benign prostatic hyperplasia without lower urinary tract symptoms; Z79.899 Other long term (current) drug therapy; Z88.1 Allergy status to other antibiotic agents; Z72.0 Tobacco use
CPT/HCPCS: 36415; 74176; 80053; 81001; 83690; 85025; 96374; 96375; 99284; 99284-25; A9270-GY; J1170; J1885

== ENCOUNTER 2021-03-23 09:56 | Emergency (ER) | payer OTHER ==
[2021-03-23 10:06] VITALS: BP 134/79; PULSE 88
[2021-03-23] MEDS ORDERED: Ketorolac 30 MG/ML SDV IVPUSH ONE (10:08)
[2021-03-23] MEDS ORDERED: Sodium Chloride 0.9% 1,000 ML IV ONE (10:08)
[2021-03-23] MEDS: Sodium Chloride 0.9% 10 ML Syringe FLUSH PRN ×2 (10:13→11:29)
[2021-03-23 10:34] LABS: CHLORIDE,CL 103 mmol/L (98-107); SODIUM,NA 141 mmol/L (136-145)
[2021-03-23] MEDS ORDERED: HYDROmorphone 1 MG/ML Syringe IVPUSH ONE (11:17)
--- NOTE | 2021-03-23 11:26 | EDM.PDOC ---
ED HPI GENERAL MEDICAL PROBLEM - General Chief Complaint: Abdominal Pain Stated Complaint: HEMATURIA Time Seen by Provider: 03/23/21 10:18 Source of Information: Reports: Patient History Limitations: Reports: No Limitations - History of Present Illness INITIAL COMMENTS - FREE TEXT/NARRATIVE: 61 YO WM PRESENTS TO ER COMPLAINING OF LEFT FLANK PAIN WITH HEMATURIA WHICH WORSENED LAST NIGHT. PT IS S/P CYSTOSCOPY WITH LITHOTRIPSY AND STENT PLACED YESTERDAY DUE TO A 3MM STAGHORN CALCULI IN THE DISTAL LEFT UVJ. PT WAS SEEN IN ER 1 WEEK AGO WITH SIMILAR COMPLAINTS AND DIAGNOSED WITH KIDNEY STONE AT THAT TIME. PT REPORTS HE WAS DISCHARGED YESTERDAY AFTER THE PROCEDURE WITHOUT ANY PAIN MEDICATION. PT STATES THEY ASKED HIM IF HE HAD ANY PAIN MEDICATION AT THAT TIME AND HE SAID YES, BUT RAN OUT THIS AM. PT WAS DISCHARGED ON HYDROCODONE 10MG WHICH HELPED PER PATIENT. PT DENIES FEVER/CHILLS, OR NAUSEA/VOMITING. PT REPORTS DYSURIA/HEMATURIA BUT DENIES FREQUENCY OR URGENCY. Duration: Week(s): (1), Getting Worse Location: Reports: Back, Radiates to (GROIN) Quality: Reports: Sharp, Stabbing Severity: Severe Improves with: Reports: None Worsens with: Reports: None Associated Symptoms: Reports: No Other Symptoms Treatments DIE DESIGNER: Reports: Acetaminophen Middle Abdominal Pain Score (Numeric/FACES): 9 - Related Data Allergies Allergy/AdvReac Type Severity Reaction Status Date / Time vancomycin Allergy Itching Verified 03/23/21 10:06 Home Meds: Home Meds Ibuprofen 800 mg PO TID PRN 06/25/18 [History] Buprenorphine HCl 1 mg PO TID 11/01/18 [History] LORazepam 0.5 mg PO BEDTIME PRN 11/01/18 [History] Tadalafil [Cialis] 40 - 60 mg PO DAILY PRN 11/01/18 [History] Dutasteride 0.5 mg PO DAILY 02/26/20 [History] Tamsulosin HCl 0.4 mg PO DAILY 02/26/20 [History] Hydrocodone/Acetaminophen [HYDROcodone-Acetaminophen 10-325 MG] 1 each PO Q4HR PRN #10 tablet 03/23/21 [Rx] Past Medical History - Past Health History Medical/Surgical History: Denies Medical/Surgical History HEENT History: Reports: Impaired Vision Cardiovascular History: Reports: None Respiratory History: Reports: None Gastrointestinal History: Reports: Hepatitis Genitourinary History: Reports: BPH, Renal Calculus Musculoskeletal History: Reports: Back Pain, Chronic, Fracture, Other (See Be low) Other Musculoskeletal History: Back injury on 10/23/18 Neurological History: Reports: None Psychiatric History: Reports: Addiction, Anxiety, Depression, Other (See Below) Other Psychiatric History: on a pain med program Endocrine/Metabolic History: Reports: None Hematologic History: Reports: None Immunologic History: Reports: None Oncologic (Cancer) History: Reports: None Dermatologic History: Reports: None - Infectious Disease History Infectious Disease History: Reports: Hepatitis C - Past Surgical History Head Surgeries/Procedures: Reports: None Cardiovascular Surgical History: Reports: Varicose, Other (See Below) Other Cardiovascular Surgeries/Procedures: varicose veins stripped left leg March 2018 Male Surgical History: Reports: Cystectomy, Kidney Stone Extraction Musculoskeletal Surgical History: Reports: Other (See Below) Other Musculoskeletal Surgeries/Procedures:: right knee fracture fixation - Past Imaging History Past Imaging History: Reports: CAT Scan, Xray Social & Family History - Family History Family Medical History: No Pertinent Family History - Caffeine Use Caffeine Use: Reports: Coffee, Soda, Tea Other Caffeine Use: 3-4 cups/ day - Living Situation & Occupation Living situation: Reports: with Spouse ED ROS GENERAL - Review of Systems Review Of Systems: See Below Constitutional: Reports: No Symptoms HEENT: Reports: No Symptoms Respiratory: Reports: No Symptoms Cardiovascular: Reports: No Symptoms Endocrine: Reports: No Symptoms GI/Abdominal: Reports: No Symptoms : Reports: Dysuria, Flank Pain, Hematuria Musculoskeletal: Reports: No Symptoms Skin: Reports: No Symptoms Neurological: Reports: No Symptoms Psychiatric: Reports: No Symptoms Hematologic/Lymphatic: Reports: No Symptoms Immunologic: Reports: No Symptoms ED EXAM, RENAL/ - Physical Exam Exam: See Below Exam Limited By: No Limitations General Appearance: Alert, WD/WN, No Apparent Distress Head: Atraumatic, Normocephalic Neck: Normal Inspection, Supple, Non-Tender, Full Range of Motion Respiratory/Chest: No Respiratory Distress, Lungs Clear, Normal Breath Sounds, No Accessory Muscle Use, Chest Non-Tender Cardiovascular: Normal Peripheral Pulses, Regular Rate, Rhythm, No Edema, No Gallop, No JVD, No Murmur, No Rub GI/Abdominal: Normal Bowel Sounds, Soft, Non-Tender, No Organomegaly, No Distention, No Abnormal Bruit, No Mass Back Exam: Normal Inspection, Full Range of Motion, CVA Tenderness (L) Extremities: Normal Inspection, Normal Range of Motion, Non-Tender, Normal Capillary Refill, No Pedal Edema Neurological: Alert, Oriented, CN II-XII Intact, Normal Cognition, Normal Gait, No Motor/Sensory Deficits Psychiatric: Normal Affect, Normal Mood Skin Exam: Warm, Dry, Intact, Normal Color, No Rash Lymphatic: No Adenopathy Course - Vital Signs Last Recorded V/S: Last Vital Signs Temp 98.6 F 03/23/21 10:00 Pulse 88 03/23/21 10:00 Resp 20 03/23/21 10:00 BP 134/79 03/23/21 10:00 Pulse Ox 97 03/23/21 10:00 - Orders/Labs/Meds Orders: Active Orders 24 hr Category Date Time Status Peripheral IV Care [RC] . DIRECTED Care 03/23/21 10:09 Active Sodium Chloride 0.9% [Saline Flush] Med 03/23/21 10:08 Active 10 ml FLUSH Q8HR PRN Peripheral IV Insertion Adult [OM.PC] Routine Oth 03/23/21 10:08 Ordered Medication Orders Sodium Chloride (Sodium Chloride 0.9% 10 Ml Syringe) 10 ml FLUSH Q8HR PRN PRN Reason: keep vein open Last Admin: 03/23/21 11:29 Dose: 10 ml Documented by: Admin: 03/23/21 10:13 Dose: 10 ml Documented by: SHILA Labs: Laboratory Tests 03/23/21 03/23/21 03/23/21 Range/Units 10:10 10:10 11:22 WBC 13.59 H (5.00-10.00) 10^3/uL RBC 4.79 (4.50-6.00) 10^6/uL Hgb 15.0 (13.0-17.0) g/dL Hct 45.4 (40.0-52.0) % MCV 94.8 H (82.0-92.0) fL MCH 31.3 H (27.0-31.0) pg MCHC 33.0 (32.0-36.0) g/dL RDW 12.0 (11.5-14.5) % Plt Count 167 (150-400) 10^3/uL MPV 8.7 (7.4-10.4) fL Immature Gran % (Auto) 0.1 (0.0-5.0) % Neut % (Auto) 81.9 H (50.0-70.0) % Lymph % (Auto) 12.7 L (20.0-40.0) % [place] % (Auto) 5.2 (2.0-8.0) % Eos % (Auto) 0.1 L (1.0-3.0) % Baso % (Auto) 0.0 (0.0-1.0) % Neut # (Auto) 11.13 H (2.50-7.00) 10^3/uL Lymph # (Auto) 1.72 (1.00-4.00) 10^3/uL [place] # (Auto) 0.71 (0.10-0.80) 10^3/uL Eos # (Auto) 0.01 L (0.10-0.30) 10^3/uL Baso # (Auto) 0.00 (0.00-0.10) 10^3/uL Immature Gran # (Auto) 0.02 (0.00-0.50) 10^3/uL Sodium 141 (136-145) mmol/L Potassium 4.2 (3.5-5.1) mmol/L Chloride 103 (98-107) mmol/L Carbon Dioxide 27.2 (21.0-32.0) mmol/L Anion Gap 15.0 (5-15) mmol/L BUN 17 (7-18) mg/dL Creatinine 0.96 (0.51-1.17) mg/dL Est Cr Clr Drug Dosing 67.91 mL/min Estimated GFR (MDRD) > 60 mL/min Glucose 124 (70-140) mg/dL Calcium 8.4 L (8.7-10.3) mg/dL Specimen Type Urinvoid Urine Color Red H (YELLOW) Urine Appearance Cloudy H (CLEAR) Urine pH 6.0 (5.0-9.0) Ur Specific [place] 1.020 (1.005-1.030) Urine Protein 100 H (NEGATIVE) mg/dL Urine Glucose (UA) Negative (NEGATIVE) mg/dL Urine Ketones Negative (NEGATIVE) mg/dL Urine Occult Blood Large H (NEGATIVE) Urine Nitrite Negative (NEGATIVE) Urine Bilirubin Negative (NEGATIVE) Urine Urobilinogen 0.2 (0.2-1.0) E.U./dL Ur Leukocyte Esterase Small H (NEGATIVE) Urine RBC >100 H (0-5) /HPF Urine WBC 0-5 (0-5) /HPF Ur Epithelial Cells Occasional /LPF Urine Bacteria Rare (NONE TO FEW) /HPF Meds: Medications Generic Name Dose Route Start Last Admin Trade Name Freq PRN Reason Stop Dose Admin Sodium Chloride 10 ml 03/23/21 10:08 03/23/21 11:29 Sodium Chloride 0.9% 10 Ml Syringe FLUSH 10 ml Q8HR PRN Administration keep vein open Discontinued Medications Generic Name Dose Route Start Last Admin Trade Name Freq PRN Reason Stop Dose Admin Hydromorphone HCl 1 mg 03/23/21 11:17 03/23/21 11:26 Hydromorphone 1 Mg/Ml Syringe IVPUSH 03/23/21 11:18 1 mg ONETIME ONE Administration Sodium Chloride 1,000 mls @ 999 mls/hr 03/23/21 10:08 03/23/21 10:20 Normal Saline IV 03/23/21 11:08 999 mls/hr .BOLUS ONE Administration Ketorolac Tromethamine 30 mg 03/23/21 10:08 03/23/21 10:21 Ketorolac 30 Mg/Ml Sdv IVPUSH 03/23/21 10:09 30 mg ONETIME ONE Administration - Re-Assessments/Exams Free Text/Narrative Re-Assessment/Exam: 03/23/21 12:14 PT REPORTS PAIN IS 0/10 AFTER HYDROMORPHONE. PT DISCHARGED WITH INSTRUCTIONS TO FOLLOW UP WITH UROLOGY SCHEDULED. PT SENT HOME WITH PAIN MEDICATION Departure - Departure Time of Disposition: 12:11 Disposition: Home, Self-Care 01 Condition: Good Clinical Impression: Renal colic on left side - Discharge Information Prescriptions: Hydrocodone/Acetaminophen [HYDROcodone-Acetaminophen 10-325 MG] 1 each PO Q4HR PRN #10 tablet PRN Reason: Pain Instructions: Renal Colic, [id number] Referrals: Daly Haynes MD [Primary Care Provider] - Forms: ED Department Discharge Additional Instructions: 1. DISCHARGE HOME 2. HYDROCODONE 10/325 #10 TAKE 1 EVERY 4-6 HOURS FOR PAIN 3. MOTRIN 600MG EVERY 6 HOURS 4. FOLLOW UP WITH UROLOGY SCHEDULED 5. RETURN TO ER FOR WORSENING SYMPTOMS Sepsis Event Note (ED) - Evaluation Sepsis Screening Result: No Definite Risk - Focused Exam Vital Signs: Vital Signs Temp Pulse Resp BP Pulse Ox 03/23/21 10:00 98.6 F 88 20 134/79 97 - My Orders Last 24 Hours: My Active Orders 03/23/21 10:08 Sodium Chloride 0.9% [Saline Flush] 10 ml FLUSH Q8HR PRN Peripheral IV Insertion Adult [OM.PC] Routine 03/23/21 10:09 Peripheral IV Care [RC] . DIRECTED - Assessment/Plan Last 24 Hours: My Active Orders 03/23/21 10:08 Sodium Chloride 0.9% [Saline Flush] 10 ml FLUSH Q8HR PRN Peripheral IV Insertion Adult [OM.PC] Routine 03/23/21 10:09 Peripheral IV Care [RC] . DIRECTED Assessment:: 1. RENAL COLIC 2. HEMATURIA Plan: 1. DISCHARGE HOME 2. HYDROCODONE 10/325 #10 TAKE 1 EVERY 4-6 HOURS FOR PAIN 3. MOTRIN 600MG EVERY 6 HOURS 4. FOLLOW UP WITH UROLOGY SCHEDULED 5. RETURN TO ER FOR WORSENING SYMPTOMS
== END 2021-03-23 12:30 | disposition home or self-care (01) ==
LOC: KA.ED 09:56
DX: N23 Unspecified renal colic (principal); N40.0 Benign prostatic hyperplasia without lower urinary tract symptoms; Z88.1 Allergy status to other antibiotic agents; Z79.899 Other long term (current) drug therapy
CPT/HCPCS: 36415; 80048; 81001; 85025; 96374; 96375; 99284; J1170; J1885; J7030

== ENCOUNTER 2021-12-15 20:17 | Emergency (ER) | payer OTHER ==
[2021-12-15] MEDS ORDERED: Diphtheria,Pertussis(Acell),Tetanus Vaccine 0.5 ML Syringe IM ONE (20:43)
[2021-12-15] MEDS ORDERED: Lidocaine 1% 20 ML MDV INJECT ONE (20:43)
[2021-12-15 23:23] VITALS: BP 122/77; PULSE 69
== END 2021-12-15 21:31 | disposition home or self-care (01) ==
LOC: KA.ED 20:17
DX: S21.112A Laceration without foreign body of left front wall of thorax without penetration into thoracic cavity, initial encounter (principal); Z23 Encounter for immunization; Z88.8 Allergy status to other drugs, medicaments and biological substances; Z88.1 Allergy status to other antibiotic agents; Z79.899 Other long term (current) drug therapy; W20.8XXA Other cause of strike by thrown, projected or falling object, initial encounter
CPT/HCPCS: 12004; 71046; 90471; 90715; 93005; 93010; 99283-25; 99284

== ENCOUNTER 2022-04-25 17:46 | Emergency (ER) | payer OTHER ==
[2022-04-25 17:58] VITALS: BP 144/83; PULSE 94
[2022-04-25] MEDS ORDERED: Albuterol/Ipratropium 3.0-0.5 MG/3 ML Neb Soln NEB ONE (17:58)
[2022-04-25] MEDS ORDERED: Acetaminophen 500 MG Tab PO ONE (17:58)
[2022-04-25 18:54] LABS: RESPIRATORY SYNCYTIAL VIR NAA POSITIVE (NEGATIVE)
[2022-04-25 18:55] LABS: CORONAVIRUS COVID-19 NAA NEGATIVE (NEGATIVE)
[2022-04-25] MEDS ORDERED: methylPREDNISolone Sodium Succinate 125 MG/2 ML SDV IM ONE (19:18)
== END 2022-04-25 19:43 | disposition home or self-care (01) ==
LOC: KA.ED 17:46
DX: J44.1 Chronic obstructive pulmonary disease with (acute) exacerbation (principal); B97.4 Respiratory syncytial virus as the cause of diseases classified elsewhere; N40.0 Benign prostatic hyperplasia without lower urinary tract symptoms; Z88.8 Allergy status to other drugs, medicaments and biological substances; Z88.1 Allergy status to other antibiotic agents; Z79.899 Other long term (current) drug therapy; Z20.822 Contact with and (suspected) exposure to COVID-19
CPT/HCPCS: 0241U; 71046; 94640; 96372; 99284; 99284-25; A9270-GY; J2930; J7620-GY

== ENCOUNTER 2022-08-04 01:54 | Emergency (ER) | payer OTHER ==
[2022-08-04 04:40] VITALS: BP 148/84; PULSE 66
== END 2022-08-04 02:25 | disposition home or self-care (01) ==
LOC: KA.ED 01:54 → SUPCPDRO 01:54 → KA.ED 02:25
DX: H92.23 Otorrhagia, bilateral (principal); J44.9 Chronic obstructive pulmonary disease, unspecified; Z88.8 Allergy status to other drugs, medicaments and biological substances; Z88.1 Allergy status to other antibiotic agents
CPT/HCPCS: 99282; 99283

== ENCOUNTER 2025-01-20 10:19 | Day surgery (SDC) | payer OTHER ==
[~2025-01-20 10:19] MED LIST: Sodium Chloride 0.9% 10 ML Syringe FLUSH PRN
[2025-01-20] MEDS ORDERED: Propofol 200 MG/20 ML SDV ONE (10:48)
[2025-01-20] MEDS ORDERED: Midazolam 1 MG/ML 2 ML SDV ONE (10:48)
[2025-01-20] MEDS: Lactated Ringers 1,000 ML IV SCH (11:05)
[2025-01-20 13:08] VITALS: BP 123/74; PULSE 61
== END 2025-01-20 13:17 | disposition home or self-care (01) ==
LOC: KA.SDS 10:19
PROVIDERS: ATTEND Surgery
DX: K22.70 Barrett's esophagus without dysplasia (principal); K21.00 Gastro-esophageal reflux disease with esophagitis, without bleeding; B37.0 Candidal stomatitis; Z88.8 Allergy status to other drugs, medicaments and biological substances; Z79.899 Other long term (current) drug therapy
CPT/HCPCS: 00731; 88305; J1596; J2250; J2704; J7120